=== PATIENT | female | born 1960 | race Caucasian/White ===

== ENCOUNTER 2016-09-22 09:27 | Day surgery (SDC) | payer OTHER ==
[~2016-09-22 09:27] MED LIST: Lactated Ringers 1,000 ML IV SCH; Sodium Chloride 0.9% 10 ML Syringe FLUSH PRN
[2016-09-22] MEDS ORDERED: Sodium Phosphate,Monobasic/Sodium Phosphate,Dibasic Enema 133 ML Bottle RECTAL ONE (09:57)
[2016-09-22] MEDS ORDERED: Citric Acid/Sodium Citrate Solution 30 ML Cup PO ONE (10:29)
[2016-09-22] MEDS ORDERED: fentaNYL 100 MCG/2 ML SDV ONE (11:22)
[2016-09-22] MEDS ORDERED: Propofol 200 MG/20 ML SDV ONE ×2 (11:22→12:32)
[2016-09-22 13:48] VITALS: BP 100/54
--- NOTE | 2016-09-23 08:53 | OR ---
DATE OF SURGERY: 09/22/2016. REFERRING PROVIDER: Carolina Vora MD. PRE-OPERATIVE DIAGNOSES: 1. Screening colonoscopy. This is the patient's first colonoscopy. No family history of colon cancer or colon polyps. 2. History of chronic constipation, secondary to pain medications. POST-OPERATIVE DIAGNOSES: 1. Very poor prep to the right and transverse colons. Despite the patient getting saline enema prior to the procedure. We will need early repeat scope in next 1 to 2 years. This will require either two-day and/or split prep. 2. No large polyps, masses, or inflammation seen. PROCEDURE: Colonoscopy. SURGEON: Olu Shankar M.D. ANESTHESIA: Monitored anesthesia care. BOWEL PREP: Very poor, mainly the right colon and transverse colon. DESCRIPTION OF OPERATION: Sonya is a 56-year-old female. She was brought to the endoscopy suite after discussing risks and benefits of the procedure. Informed consent was obtained for conscious sedation and colonoscopy with or without biopsy and/or polypectomy. We also discussed possibility of missed lesions. Pre-procedure exam was unremarkable. IV, oxygen, and monitors were placed. The patient was placed in the left lateral decubitus position. Sedation was administered and a digital rectal exam performed and unremarkable. Colonoscope was passed through the rectum and was slowly advanced all the way to the cecum. Initially, the prep was decent in the sigmoid and left colon. Once the transverse colon was reached at about 90 cm, prep worsened significantly. Soft stool coated the entire bowel mucosa, passed this area with some occasional larger chunks. The cecum was viewed and photographed. The colonoscope was slowly withdrawn and the mucosa was closed observed in a direct circumferential manner. I did not appreciate any large polyps, masses, or inflammation; although the right and transverse colon were poorly visualized with regard to the mucosal lining. The descending colon and the sigmoid colon were unremarkable although other way out stool contents continue to move downstream making visualization on the way out difficult. Retroflexion was not able to be performed as stool had filled the rectal vault by this time. Scope was removed. The patient tolerated the procedure well. The patient was monitored until that baseline status. Discharge instructions were reviewed and the patient was discharged in good condition. COMPLICATIONS: None. TOTAL TIME: 18 minutes. ESTIMATED BLOOD LOSS: None. RECOMMENDATIONS/FOLLOW-UP: Given the very poor prep, I would recommend early repeat colonoscopy in the next year or two. I did not appreciate any large polyps or masses or any inflammation, but the right and transverse colon were poorly visualized. In the future, I would recommend either 2 days and/or a split prep dosing. I would like to kindly thank Carolina Vora for this referral. DMB: 09/22/2016 13:08:40 MODL: 09/22/2016 18:10:21 /[id number]
== END 2016-09-22 13:52 | disposition home or self-care (01) ==
LOC: VM.SDS 09:27
PROVIDERS: ATTEND Family Medicine
DX: Z12.11 Encounter for screening for malignant neoplasm of colon (principal); I10 Essential (primary) hypertension; E78.00 Pure hypercholesterolemia, unspecified; Z98.890 Other specified postprocedural states; Z79.899 Other long term (current) drug therapy; Z98.51 Tubal ligation status
CPT/HCPCS: 45378; A9270; J2704; J3010; J7120